=== PATIENT | male | born 1990 | race Caucasian/White ===

== ENCOUNTER 2020-01-20 18:36 | Emergency (ER) | payer MEDICAID ==
[~2020-01-20] VITALS: Ht 182.9 cm; Wt 81.6 kg
--- NOTE | 2020-01-20 18:46 | NUR ---
LILLY RA 58 "Bystander called-Homeless/Alcohol intoxication [id number]" PT TO BED 13, PLACED ON MONITOR, VSS, -SOB, NAD NOTED, PENDING ER PROVIDER
[2020-01-20] MEDS ORDERED: HALOPERIDOL LACTATE INJ 5 MG/ML VIAL IM ONE (19:00)
[2020-01-20] MEDS ORDERED: IV NS 0.9% 1,000 ML BAG IV ONE (19:00)
[2020-01-20] MEDS ORDERED: HALOPERIDOL LACTATE INJ 5 MG/ML VIAL ONE (19:02)
[2020-01-20 19:07] LABS: BASOPHILS # (AUTO) 0.1 /CMM (0.0-0.2); BASOPHILS % (AUTO) 0.7 % (0.0-2.0); EOSINOPHILS % (AUTO) 2.1 % (0.0-6.0); HEMATOCRIT 49 % (39-51); HEMOGLOBIN 16.5 g/dL (13.5-17.5); LYMPHOCYTES # (AUTO) 2.2 /CMM (0.8-4.8); LYMPHOCYTES % (AUTO) 19.6 % (20.0-44.0); MEAN CORPUSCULAR HGB CONC 34 g/dl (31.0-36.0); MEAN CORPUSCULAR VOLUME 88 fL (80-96); MONOCYTES # (AUTO) 0.3 /CMM (0.1-1.30); MONOCYTES % (AUTO) 2.6 % (2.0-12.0); NEUTROPHILS # (AUTO) 8.4 /CMM (1.8-8.9); PLATELET COUNT (AUTO) 246 /CMM (150-450); RED BLOOD CELL COUNT(AUTO) 5.57 MIL/uL (4.5-6.0); WHITE BLOOD COUNT (AUTO) 11.2 K/uL (4.3-11.0)
[2020-01-20 19:29] LABS: ALBUMIN 3.9 g/dL (3.4-5.0); BILIRUBIN,DIRECT 0.1 mg/dL (0.0-0.2); BILIRUBIN,TOTAL 0.6 mg/dL (0.2-1.0); CALCIUM, SERUM 8.4 mg/dL (8.5-10.1); CREATININE 1.1 mg/dL (0.6-1.3); POTASSIUM 4.2 mmol/L (3.5-5.1); SALICYLATE 2.7 mg/dL (2.8-20.0); TOTAL PROTEIN, SERUM 7.3 g/dL (6.4-8.2)
[2020-01-20 20:08] LABS: APPEARANCE,URINE Clear (CLEAR); BILIRUBIN,URINE Negative (NEGATIVE); BLOOD, URINE Negative Ery/uL (NEGATIVE); COLOR,URINE Yellow (YELLOW); KETONES,URINE Negative (NEGATIVE); LEUKOCYTE ESTERASE ,URINE Negative (NEGATIVE); NITRITE, URINE Negative (NEGATIVE); PROTEIN,URINE Negative (NEGATIVE); UGLUCOSE Negative (NEGATIVE); UROBILINOGEN,URINE 0.2 EU/dL (0.2)
[2020-01-20] MEDS ORDERED: LORAZEPAM INJ 2 MG/ML VIAL ONE (20:34)
--- NOTE | 2020-01-20 20:45 | NUR ---
PT IS BACK FROM THE CT SCAN
[2020-01-20] MEDS ORDERED: LORAZEPAM INJ 2 MG/ML VIAL IV ONE (21:00)
--- NOTE | 2020-01-20 23:45 | NUR ---
PT REQUESTING SNACKS AND DRINK, PT MORE AWAKE, COOPERATIVE WITH CARE
--- NOTE | 2020-01-21 01:30 | NUR ---
AT BEDSIDE. PATIENT SOBER
--- NOTE | 2020-01-21 02:13 | NUR ---
IV removed. Catheter intact and site benign. Pressure and 4x4 applied to site. No bleeding noted.Pt ambulatory with a steady gaitPatient given written and verbal discharge instructions. Patient verbalizes understanding of instructions. Patient is ambulatory with steady gait. Refuses offer of half-way placement. Patient given list of available shelters in surrounding area.
[2020-01-21 02:15] VITALS: BP 121/84
== END 2020-01-21 02:15 | disposition home or self-care (01) ==
LOC: ER 18:37
DX: F10.129 Alcohol abuse with intoxication, unspecified (principal); F19.10 Other psychoactive substance abuse, uncomplicated; R51 Headache; R00.0 Tachycardia, unspecified; Y90.8 Blood alcohol level of 240 mg/100 ml or more; Z59.0 Homelessness
CPT/HCPCS: 36415; 70450; 80048; 80076; 80305; 80307; 80329; 81001; 85025; 93005; 96372; 96374; 99285; G0480; J1630; J2060; J7030; 81000-TC

== ENCOUNTER 2020-07-19 15:07 | Emergency (ER) | payer MEDICAID ==
[~2020-07-19] VITALS: Ht 170.2 cm; Wt 74.8 kg
[2020-07-19 15:49] LABS: BASOPHILS % (AUTO) 0.8 % (0.0-2.0); EOSINOPHILS % (AUTO) 1.4 % (0.0-6.0); HEMATOCRIT 43 % (39-51); HEMOGLOBIN 14.4 g/dL (13.5-17.5); LYMPHOCYTES # (AUTO) 1.3 /CMM (0.8-4.8); LYMPHOCYTES % (AUTO) 22.7 % (20.0-44.0); MEAN CORPUSCULAR HGB CONC 34 g/dl (31.0-36.0); MEAN CORPUSCULAR VOLUME 86 fL (80-96); MONOCYTES # (AUTO) 0.6 /CMM (0.1-1.30); MONOCYTES % (AUTO) 9.9 % (2.0-12.0); NEUTROPHILS # (AUTO) 3.8 /CMM (1.8-8.9); NEUTROPHILS % (AUTO) 65.2 % (43.0-81.0); PLATELET COUNT (AUTO) 193 /CMM (150-450); RED BLOOD CELL COUNT(AUTO) 4.96 MIL/uL (4.5-6.0); WHITE BLOOD COUNT (AUTO) 5.8 K/uL (4.3-11.0)
[2020-07-19 16:00] LABS: CALCIUM, SERUM 8.7 mg/dL (8.5-10.1); CARBON DIOXIDE 26 mmol/L (21-32); CHLORIDE 102 mmol/L (98-107); CREATININE 0.8 mg/dL (0.6-1.3); GLUCOSE 86 mg/dL (74-106); POTASSIUM 3.6 mmol/L (3.5-5.1); SODIUM SERUM 138 mmol/L (136-145); UREA NITROGEN, BLOOD 23 mg/dL (7-18)
[2020-07-19 16:06] LABS: ALANINE AMINOTRANSFERASE 26 U/L (12-78); ALBUMIN 3.7 g/dL (3.4-5.0); ALCOHOL, BLOOD < 3 mg/dL (0-0); ALKALINE PHOSPHATASE 96 U/L (46-116); ASPARTATE AMINOTRANSFERASE 22 U/L (15-37); BILIRUBIN,DIRECT 0.2 mg/dL (0.0-0.2); BILIRUBIN,TOTAL 0.9 mg/dL (0.2-1.0); TOTAL PROTEIN, SERUM 7.1 g/dL (6.4-8.2)
[2020-07-19 16:07] LABS: ACETAMINOPHEN < 2 ug/ml (10-30); SALICYLATE < 2.8 mg/dL (2.8-20.0)
[2020-07-19] MEDS ORDERED: OLANZAPINE 10 MG VIAL IM ONE (16:51)
[2020-07-19] MEDS: OLANZAPINE 10 MG VIAL IM ONE (16:55)
--- NOTE | 2020-07-19 18:10 | NUR ---
URINE COLLECTED AND SENT TO LAB
[2020-07-19 18:22] LABS: APPEARANCE,URINE Slightly Cloudy (CLEAR); BILIRUBIN,URINE SMALL (NEGATIVE); BLOOD, URINE Negative Ery/uL (NEGATIVE); KETONES,URINE Trace (NEGATIVE); LEUKOCYTE ESTERASE ,URINE Negative (NEGATIVE); NITRITE, URINE Negative (NEGATIVE); PROTEIN,URINE Negative (NEGATIVE); UGLUCOSE Negative (NEGATIVE); UROBILINOGEN,URINE 0.2 EU/dL (0.2)
[2020-07-19 18:27] LABS: COLOR,URINE DARK YELLOW (YELLOW)
[2020-07-19 18:45] LABS: BACTERIA,URINE Few /HPF (None Seen)
[2020-07-19 18:46] LABS: RBC,URINE 0-2 /HPF (0-2); SQUAMOUS EPITHELIAL CELL,UR Rare /HPF (None Seen); WBC,URINE 0-2 /HPF (0-3)
--- NOTE | 2020-07-19 19:30 | NUR ---
ASSUMED CARE FOR PATIENT AT THIS TIME. PT RESTING COMFORTABLY IN BED. VITAL SIGNS STABLE. SITTER STILL AT BEDSIDE, WILL CONTINUE TO MONITOR
--- NOTE | 2020-07-19 21:04 | NUR ---
CALLED BOLT HEADER MARIA C [place] FOR EVALAUTION
--- NOTE | 2020-07-19 21:19 | NUR ---
STAKES PLAYER SHERRY OG EN ROUTE TO HOSPITAL TO EVALUATE PATIENT
--- NOTE | 2020-07-19 21:55 | NUR ---
HOUSEKEEPER [facility] SHERRY LÓPEZ AT BEDSIDE FOR EVALUATION
--- NOTE | 2020-07-19 23:39 | NUR ---
SPOKE WITH [facility] INTAKE, REQURING COVID SWAB FOR PLACEMENT, AWARE
--- NOTE | 2020-07-20 01:29 | NUR ---
REC'D NEG COVID RESULTS
--- NOTE | 2020-07-20 04:09 | NUR ---
PER SONY FROM [facility], UNABLE TO FIND PLACEMENT FOR PATIENT WITH COVID ANTIGEN RESULTS, MUST HAVE COVID PCR. MD CABRERA
--- NOTE | 2020-07-20 09:35 | NUR ---
FELIX CALLED FOR PSYCH EVAL.
--- NOTE | 2020-07-20 10:41 | NUR ---
FELIX RN AT BEDSIDE FOR PSYCH EVAL.
--- NOTE | 2020-07-20 11:57 | NUR ---
MEDICALLY AND PSYCH CLEARED. PROVIDED W/ MEAL AND CLOTHES DENIES SI/HI. HOMELESS WAIVER SIGNED. STABLE CONDITION.
[2020-07-20 12:02] VITALS: BP 110/68
== END 2020-07-20 12:04 | disposition home or self-care (01) ==
LOC: ER 15:13
DX: F22 Delusional disorders (principal); R45.1 Restlessness and agitation; Z20.828 Contact with and (suspected) exposure to other viral communicable diseases; Z59.0 Homelessness; F15.10 Other stimulant abuse, uncomplicated; F12.10 Cannabis abuse, uncomplicated
CPT/HCPCS: 36415; 80048; 80076; 80305; 80307; 80329; 81001; 85025; 87426; 96372; 99291; C9803 ×2; G0480; J3490; U0003; 81000-TC